=== PATIENT | female | born 1960 ===

== ENCOUNTER 2020-11-12 07:35 | Outpatient (CLI) | payer MEDICARE, OTHER, MEDICAID, SELFPAY ==
--- NOTE | 2020-11-12 07:41 | NM_ITS ---
WS: [id number] NUCLEAR MEDICINE HIDA SCAN WITH GALLBLADDER EJECTION FRACTION HISTORY: ABDOMINAL PAIN COMPARISON: None available. TECHNIQUE: The patient was intravenously injected with 8.4 mCi of TC99m Mebrofenin. Immediate imaging over the right upper quadrant was followed by 5 minute image and additional images for a total of 60 minutes. Normal uptake of radiotracer throughout the liver. Activity identified in the gallbladder at 50 minutes and minimally distended by 60 minutes. Activity in the proximal small bowel was seen by 20 minutes. Good washout of the radiotracer from the liver by 60 minutes. The patient then drank 8 ounces of Ensure Plus. Ejection fraction at 60 minutes was 63%. Normal GB ej ection fraction is 35-75%. Post fatty meal symptoms: Nodular. NM/NM hepatobiliary w phar* [id number] IMPRESSION: 1. Slight delay in filling of the gallbladder. Gallbladder identified at 50 mi nutes. No cystic or common bile duct duct obstruction. 2. Normal gallbladder ejection fraction.
== END 2020-11-12 07:36 | disposition home or self-care (01) ==
PROVIDERS: PCP Nurse Practitioner Family; Visit Provider Surgery
DX: R10.9 Unspecified abdominal pain (principal)
CPT/HCPCS: 78227; A9537

== ENCOUNTER 2020-11-25 07:57 | Day surgery (SDC) | payer MEDICARE, OTHER, MEDICAID, SELFPAY ==
[2020-11-24 14:37] VITALS: BMI 32.3
[2020-11-25] VITALS (11 sets, daily range): BP systolic 120–210; BP diastolic 59–120; PULSE 65–92; RESP 12–19; TEMP 36.1–36.6; O2SAT 90–96
--- NOTE | 2020-11-25 09:22 | W.PM.OPSUD ---
Surgery/Procedure H&P Update DATE OF PROCEDURE: November 25, 2020 DATE H&P PERFORMED: 11/24/20 H&P UPDATE INFORMATION: I have reviewed H&P completed within last 30 days, I have examined patient prior to procedure and No changes to prior documentation PREOP DIAGNOSIS: chronic cholecystitis PLANNED PROCEDURE: Operation Date: 11/25/20 09:45 Proposed Procedures p Laparoscopic Cholecystectomy 20401 [id number] R10.9(Not Applicable) - Joshua Cast MD s EGD(Not Applicable) - Joshua Cast MD
--- NOTE | 2020-11-25 09:32 | P.ANESASSM_ITS ---
Pre-Anesthetic Assessment Pre-Anesthetic Assessment: Height/Weight: Height 1.68 m Weight 90.718 kg Temp Pulse Resp BP Pulse Ox 97.0 F L 74 18 210/120 96 11/25/20 09:13 11/25/20 09:13 11/25/20 09:13 11/25/20 09:13 11/25/20 09:13 Preop Diagnosis: chronic cholecystitis Proposed Procedure: Operation Date: 11/25/20 09:45 Proposed Procedures p Laparoscopic Cholecystectomy 69394 [id number] R10.9(Not Applicable) - Joshua Cast MD s EGD(Not Applicable) - Joshua Cast MD Familial anesthetic complications: None Was Beta Eric taken within 24 hours: N/A Last intake: Intake Last Liquid Date 11/24/20 Last Liquid Time 20:00 Last Solid Date 11/24/20 Last Solid Time 20:00 Social: Social History: No alcohol and No tobacco Exam: Pre-Anes Outpt Exam: alert, oriented x 3, clear to auscultation bilaterally and regular rate & rhythm Airway: Cervical ROM: WNL MP: 4 Dentition: Full and Other (missing teeth, broken teeth) Pulmonary: Pulmonary: Sleep apnea CV/HEM: CV/HEM: HTN Hepatic: Hepatic: Hepatitis (hx hepatitis A) Metabolic: Metabolic: Morbid obesity and Thyroid Comments: Thyroid levels checked 3 months ago and they were wnl - no changes in medication Anesthetic Plan: ASA status: 3 Anesthesia: General Risk of > 500 ml blood loss (7ml/kg in children): No PFSH Anesthesia 2 PFSH: Medical History (Updated 10/30/20 @ 12:07 by Joshua Cast MD) Abdominal pain Anxiety COVID-19 (~10/13/20) GERD (gastroesophageal reflux disease) Surgical History (Updated 10/30/20 @ 12:04 by Joshua Cast MD) History of back surgery History of hysterectomy History of thyroid surgery Family History (Updated 10/30/20 @ 11:33 by Saida Parikh RN) Denies family history of Anesthesia complication Bleeding disorder Data Anesthesia Cardiac Studies: No Data to Display
[2020-11-25] MEDS: sodium chloride 0.9% 1,000 ML 30 ML IV (09:53)
[2020-11-25] MEDS: midazolam 1 mg/mL INJ 2 mL 2 MG IVP (10:06)
[2020-11-25] MEDS: fentaNYL 50 mcg/mL INJ 2mL IVP ×2 (11:24→11:29)
--- NOTE | 2020-11-25 12:02 | PM.OP ---
Operative Report Date of procedure: November 25, 2020 Pre-op Diagnosis: chronic cholecystitis Post-op Diagnosis: 1. Normal EGD 2. Chronic cholecystitis 3. Nodular liver Procedure Done: 1. Laparoscopic cholecystectomy 2. Laparoscopic liver wedge biopsy 3. Esophagogastroduodenoscopy without biopsy Specimens removed/disposition: 1. Gallbladder 2. Liver biopsy Surgeon: Joshua Cast Anesthesia: General Condition: stable Disposition: PACU Procedure: The patient was taken to the operating room and was intubated under general anesthesia. A bite-block was placed the gastroscope was introduced and advanced up to the second portion of the duodenum and slowly withdrawn. The first and second part of the duodenum was normal. The fundus, body, antrum and pylorus of stomach were normal. Z-line at 40 cm. There were no distal esophageal changes. The rest of the esophagus was normal. After the antibiotic had been administered, the abdomen was prepped and draped in a sterile manner. Using a #15 blade, a 1 centimeter infraumbilical curvilinear incision was made and using an open Pao technique the peritoneal cavity was entered. A 10 millimeter port was placed and 15 millimeters of pneumoperitoneum was created. A 10 millimeter, 30 degrees scope was then introduced. Three 5 millimeter ports were placed in the epigastric, midclavicular and the anterior axillary line two fingerbreadths below the costal margin on the right side under the direct visualization. The gallbladder was distended and decompressed using an aspiration needle. Ratcheted forceps were introduced into the lateral most port and was used to retract the fundus of the gallbladder cephalad and using forceps the infundibulum of the gallbladder was retracted laterally. Using L-hook cautery the peritoneum overlying the Calot's triangle was opened medially and laterally until the cystic duct and the cystic artery were skeletonized. Dissection was carried along the body of the gallbladder and after ensuring critical view of safety, 4 clips applied on the cystic duct and cut leaving, 3 clips on the remaining portion of the duct. The cystic artery was divided with electrocautery since it was small. The rest of the gallbladder was dissected off the liver using L-hook cautery. The liver appeared nodular and therefore using electrocautery a wedge biopsy was obtained adjacent to the gallbladder fossa. There was no bleeding or bile leaking noted from the gallbladder fossa and the clips appeared to be in place. An EndoCatch bag was introduced to remove the gallbladder. All the ports were removed under direct visualization and there was no bleeding noted from the port sites. The fascia of the umbilicus was closed using [id number] 0 Vicryl sutures and the subcutaneous tissue was approximated using 3-0 Vicryl sutures. The skin at all four ports were closed using 4-0 Monocryl and Dermabond. A total of 10 millimeters of 0.5% Marcaine was infiltrated around the port sites. The patient was stable throughout the procedure.
[2020-11-25] MEDS: HYDROcodone-acetaminophen 5-325 mg Tablet 1 TAB PO (12:07)
--- NOTE | 2020-11-25 20:00 | ANE.PACU2 ---
Inpatient post-anesthesia follow up: Airway intact: Yes Vital signs: Temperature 97.5 F Pulse Rate 69 Respiratory Rate 18 Blood Pressure 166/92 Pulse Oximetry 92 Oxygen Delivery Me thod Room Air Oxygen Flow Rate Fraction of Inspir ed Oxygen Hydration adequate: Yes Nausea and vomiting: No Pain level: 2 Mental status: Baseline
== END 2020-11-25 12:28 | disposition home or self-care (01) ==
PROVIDERS: PCP Nurse Practitioner Family; Visit Provider Surgery
PROC: 0FT44ZZ Resection of Gallbladder, Percutaneous Endoscopic Approach (ICD-10-PCS; CPT 47562; principal; 2020-11-25 09:45)
PROC: 0DJ08ZZ Inspection of Upper Intestinal Tract, Via Natural or Artificial Opening Endoscopic (ICD-10-PCS; CPT 43235; 2020-11-25 09:45)
DX: K80.10 Calculus of gallbladder with chronic cholecystitis without obstruction (principal); K74.60 Unspecified cirrhosis of liver; G47.30 Sleep apnea, unspecified; I10 Essential (primary) hypertension; E66.01 Morbid (severe) obesity due to excess calories; Z68.32 Body mass index [BMI] 32.0-32.9, adult; Z86.16 Personal history of COVID-19
CPT/HCPCS: 43235; 47379; 47562; 88304; 88307; J0690; J2250; J2405; J2704; J2710; J3010; J3490; J7030

== ENCOUNTER 2025-01-21 07:16 | Outpatient (CLI) | payer MEDICARE, MEDICAID, SELFPAY ==
--- NOTE | 2025-01-21 07:24 | US_ITS ---
WS: [id number] RIGHT UPPER QUADRANT ULTRASOUND HISTORY: NONALCOHOLIC STEATOHEPATITIS COMPARISON: None available. Liver: 14.0 cm in length. Normal size liver with coarse echotexture throughout. No masses identified. No intrahepatic duct dilatation. Portal Vein: Normal hepatopetal flow with monophasic waveform. Gallbladder: Prior cholecystectomy. CBD: 0.4 cm Pancreas: Body is normal. Head and tail are not visualized. Right kidney: 10.0 cm in length. Normal size and echogenicity. No hydronephrosis or mass. Aorta and IVC: Mild atherosclerosis aorta. No ascites. US/US abdomen limited [id number] IMPRESSION: 1. Prior cholecystectomy. 2. Normal size liver with coarse echotexture, likely hepatic steatosis. No mas s.
== END 2025-01-21 07:17 | disposition home or self-care (01) ==
LOC: RAD 07:18
PROVIDERS: PCP Family Medicine; Visit Provider Nurse Practitioner Family
DX: K75.81 Nonalcoholic steatohepatitis (NASH) (principal); Z90.49 Acquired absence of other specified parts of digestive tract; I70.0 Atherosclerosis of aorta; R93.2 Abnormal findings on diagnostic imaging of liver and biliary tract
CPT/HCPCS: 76705

== ENCOUNTER 2025-04-25 10:01 | Outpatient (CLI) | payer MEDICARE, SELFPAY ==
--- NOTE | 2025-04-25 10:19 | XR_ITS ---
WS: [id number] XR lumbar spine 6V w f/e [id number] REASON FOR EXAM: LUMBOSACRAL SPONDYLOSIS FINDINGS: No recent comparison examination. Mild rotatory dextroscoliosis. Relatively normal lordosis. No significant vertebral body compression deformity or focal lesion. Significant narrowing of the L1-L2 disc space with degenerative gas. Mild narrowing of the L2-L3 and L3-L4 disc spaces. Posterior decompression with pedicle screws and interconnecting rods and interbody fusion device at L3-4 L5. Lateral bony fusion masses L4-L5. Severe narrowing of the L5-S1 disc space with degenerative gas. No significant neutral listhesis. No significant vertebral body movement with flexion or extension. XR/XR lumbar spine 6V w f/e [id number] IMPRESSION: Postoperative lumbar spine as above. Previous CT examination 11/10/2009 [address]en that the posterior fusion is stable. Degenerative spondylosis at L5-S1 unch anged. Degenerative disc changes L1 and L4 have developed since the previous ex amination.
== END 2025-04-25 10:02 | disposition home or self-care (01) ==
PROVIDERS: PCP Family Medicine; Visit Provider Student in an Organized Health Care Education/Training Program
DX: M47.817 Spondylosis without myelopathy or radiculopathy, lumbosacral region (principal); M48.061 Spinal stenosis, lumbar region without neurogenic claudication; M48.07 Spinal stenosis, lumbosacral region; Z98.1 Arthrodesis status
CPT/HCPCS: 72114